=== PATIENT | female | born 1995 | race African-American/Black ===

== ENCOUNTER 2017-07-29 01:59 | Emergency (ER) | payer MEDICAID, OTHER ==
[~2017-07-29] VITALS: Ht 162.6 cm; Wt 82.6 kg
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
[2017-07-29] MEDS ORDERED: IBUPROFEN600 MG ORAL (02:55)
[2017-07-29 03:06] VITALS: BP_SYST 123; BP_SYST 127; BP_DIAS 73; BP_DIAS 79
--- NOTE | 2017-07-29 09:18 | Diagnostic Imaging Report ---
Indication: Pain status post injury Technique: XRAY Knee Compl 4v+ L Comparison: None Findings: There is no evidence of acute fracture or dislocation. Anatomic alignment and joint spaces preserved. No suprapatellar joint effusion or radiopaque foreign body seen. Impression: No acute fracture or dislocation.
== END 2017-07-29 03:07 | disposition home or self-care (01) ==
LOC: EMR 02:20
DX: S80.02XA Contusion of left knee, initial encounter (principal); V43.92XA Unspecified car occupant injured in collision with other type car in traffic accident, initial encounter; Y92.481 Parking lot as the place of occurrence of the external cause
CPT/HCPCS: 99283

== ENCOUNTER 2019-01-27 10:37 | Emergency (ER) | payer OTHER ==
[~2019-01-27] VITALS: Ht 162.6 cm; Wt 72.6 kg
[~2019-01-27 10:37] MED LIST: IBUPROFEN600 MG ORAL
--- NOTE | 2019-01-27 10:40 | NUR ---
ED Nurse Note: patient was brouhgt to ER by sister due to pain in right lower back 01/08. Patient c/o nausea, denies v/d. patient denies vaginal discharge or contraction. VSS.
--- NOTE | 2019-01-27 11:07 | Emergency Room Report ---
History of Present Illness General Chief Complaint: Complications Source: Patient Present Illness [facility] Disclaimer: Please note that this report is being documented using [employer] technology. This can lead to erroneous entry secondary to incorrect interpretation by the dictating instrument. HPI: 23-year-old female at 8 months gestation presents for evaluation of lower back pain. Patient has been experiencing pain on the right side of the lower back while sitting upright and while laying flat for the past few days. It is nonradiating and denies any weakness or paresthesias in the lower extremities. She is also complaining of mild tenderness on the left side which started earlier today. Is making it difficult for her to ambulate. Denies trauma. Denies urinary retention. She denies abdominal pain, dysuria or hematuria. Reports nausea which has been constant throughout but denies vomiting. Denies any other complaints at this time. She has no cramping , no contractions, no leakage of fluid, no vaginal bleeding. Scheduled to follow-up with [facility] early next week. PMH: None PSH: Cholecystectomy Allergies: Denies Social Hx: Denies drug, tobacco or alcohol use Allergies: Coded Allergies: No Known Allergies (Unverified , 07/29/17) Patient History Last Menstrual Period: 06/16/2018 Now: Yes : 3 Para: 2 Nursing Documentation-PMH Past Medical History: No History, Except For Hx Asthma: Yes Review of Systems All Other Systems: negative except mentioned in HPI Physical Exam Vital Signs Date Time Temp Pulse Resp B/P (MAP) Pulse Ox O2 Delivery O2 Flow Rate FiO2 01/27/19 10:56 97.2 88 19 130/68 (88) 99 Room Air General: Awake and alert, no acute distress HEENT: NC/AT. EOMI. Cardiovascular: RRR. S1 and S2 normal. No murmur appreciated Resp: Normal work of breathing. No cough, wheezing or crackles appreciated Abdomen: Large gravid abdomen with fundus above the umbilicus Skin: Intact. No abrasions, laceration or rash over the exposed skin MSK: Normal tone and bulk. Moving all extremities. No obvious deformity. Neuro: Awake and alert. Mentating appropriately. Back/Spine: No midline tenderness in the cervical, thoracic or lumbosacral spine. There is moderate tenderness over the right side in the superior gluteal region. No deformity appreciated. No tenderness on the left side. Medical Decision Making Diagnostic Impression: Primary Impression: Back pain affecting in third trimester ER Course 23-year-old female at 8 months gestation presents for evaluation of atraumatic right-sided lower back pain. Patient has reproducible tenderness over the superior gluteal consistent with a muscle strain and spasm. heart rate is 147. No evidence of labor or contractions at this time. Will obtain a urinalysis to rule out urinary tract infection as the cause of the lower back pain however at this time it appears to be musculoskeletal in nature. Overall she is well-appearing has no other complaints at this time. We will give her a lidocaine patch and Tylenol. Laboratory Tests Test 01/27/19 11:10 Urine Color Pale yellow Urine Appearance Clear Urine pH 8 (4.5-8.0) Urine Specific [place] 1.010 (1.005-1.035) Urine Protein Negative (NEGATIVE) Urine Glucose (UA) Negative (NEGATIVE) Urine Ketones Negative (NEGATIVE) Urine Blood Negative (NEGATIVE) Urine Nitrite Negative (NEGATIVE) Urine Bilirubin Negative (NEGATIVE) Urine Urobilinogen Normal MG/DL (0.0-1.0) Urine Leukocyte Esterase 1+ (NEGATIVE) H Urine RBC 0 /HPF (0 - 2) Urine WBC 0-2 /HPF (0 - 2) Urine Squamous Epithelial Cells Few /LPF (NONE/OCC) Urine Bacteria Few /HPF (NONE) Reevaluation Time: 12:12 Last Vital Signs Date Time Temp Pulse Resp B/P (MAP) Pulse Ox O2 Delivery O2 Flow Rate FiO2 01/27/19 10:56 97.2 88 19 130/68 (88) 99 Room Air Reevaluation Impression UA is unremarkable. Back pain slightly improved. She will be discharged with lidocaine patches and Tylenol. She is to keep her appointment with [facility] scheduled for tomorrow for reevaluation and return to emergency department any new or worsening symptoms. No sign of active labor at the time and overall she is well-appearing with stable vital signs. We discussed reasons to return to the emergency department as well as need for follow-up as an outpatient. She understands and agrees with the treatment plan will be discharged home. Disposition: HOME, SELF-CARE Condition: Stable Scripts Lidocaine Patch* (Lidoderm Patch*) 1 Each Adh..patch 1 PATCH TOPIC DAILY, #7 PATCH 0 Refills Patch(es) may remain in place for up to 12 hours in any 24-hour period. Prov: Tex Renee MD 01/27/19 Acetaminophen* (ACETAMINOPHEN 325MG TABLET*) 325 Mg Tablet 650 MG ORAL Q6H PRN for For Pain for 7 Days, #30 TAB Prov: Tex Renee MD 01/27/19 Tex Renee MD Jan 27, 2019 11:07
[2019-01-27 12:00] LABS: APPEARANCE,URINE CLEAR; BILIRUBIN, URINE NEGATIVE (NEGATIVE); COLOR,URINE PALE YELLOW; GLUCOSE, URINE (UA) NEGATIVE (NEGATIVE); KETONES,URINE NEGATIVE (NEGATIVE); LEUKOCYTE ESTERASE ,URINE 1+ (NEGATIVE); NITRITE,URINE NEGATIVE (NEGATIVE); PH,URINE 8 (4.5-8.0); PROTEIN,URINE NEGATIVE (NEGATIVE); UROBILINOGEN,URINE NORMAL MG/DL (0.0-1.0)
[2019-01-27] MEDS ORDERED: ACETAMINOPHEN325 M1 ORAL (12:12)
[2019-01-27] MEDS ORDERED: LIDODERM700 M1 TOPIC (12:12)
[2019-01-27 12:34] VITALS: BP 119/20
--- NOTE | 2019-01-27 12:36 | NUR ---
ER DISCHARGE NOTE: Patient is cleared to be discharged per ERMD, pt is aox4, on room air, with stable vital signs. pt was given dc and prescription instructions, pt was able to verbalize understanding, pt id band removed . pt is able to ambulate with steady gait. pt took all belongings.
== END 2019-01-27 12:36 | disposition home or self-care (01) ==
LOC: EMR 12:07
DX: O26.893 Other specified pregnancy related conditions, third trimester (principal); Z3A.00 Weeks of gestation of pregnancy not specified; J45.909 Unspecified asthma, uncomplicated; Z90.49 Acquired absence of other specified parts of digestive tract
CPT/HCPCS: 81003; Z7502; 99283